=== PATIENT | female | born 1985 | race Caucasian/White ===

== ENCOUNTER 2017-03-15 18:59 | Emergency (ER) | payer OTHER ==
[~2017-03-15] VITALS: Ht 182.9 cm; Wt 86.7 kg
[~2017-03-15 18:59] MED LIST: ADDERALL30 MG PO; ADVIL MIGRAINE200 MG PO; ALPRAZOLAM1 MG PO; AMOXICILLIN875 MG PO; ATARAX,VISTARIL25 MG PO; ATARAX,VISTARIL50 MG PO; AVINZA30 MG PO; BACTRIM,SEPT1 TABLET PO; BUPRENORPHINE HC8 MG SL; CATAPRES0.1 MG PO; CEFDINIR300 MG PO; DIAZEPAM5 MG PO; IBUPROFEN600 MG PO; KEFLEX500 MG PO; KLONOPIN2 MG PO; LORTAB 5-500 T1 EACH PO; MOTRIN800 MG PO; NAPROSYN500 MG PO; PERCOCET 10/1 TABLET PO; PERCOCET 5/31 TABLET PO; SUBOXONE 8 MG-1 EAC2 SL; TORADOL10 MG PO; TRAZODONE HCL50 MG PO; VICODIN,LORT1 TABLET PO; XANAX0.5 MG PO; XANAX2 MG PO
[2017-03-15 22:43] VITALS: BP 121/78
== END 2017-03-15 22:45 | disposition home or self-care (01) ==
LOC: EME 18:59
PROC: 0HQ0XZZ Repair Scalp Skin, External Approach (ICD-10-PCS; principal; 2017-03-15)
DX: S09.90XA Unspecified injury of head, initial encounter (principal); S01.01XA Laceration without foreign body of scalp, initial encounter; Y04.0XXA Assault by unarmed brawl or fight, initial encounter; M79.7 Fibromyalgia; F32.9 Major depressive disorder, single episode, unspecified; F41.9 Anxiety disorder, unspecified; Z88.8 Allergy status to other drugs, medicaments and biological substances; F17.200 Nicotine dependence, unspecified, uncomplicated
CPT/HCPCS: 70450; 72125; 99281; 99284